=== PATIENT | male | born 2000 | race African-American/Black ===

== ENCOUNTER 2020-10-03 03:56 | Emergency (ER) | payer OTHER ==
[2020-10-03] MEDS ORDERED: ONDANSETRON 4 MG/2 ML VIAL IM STA (04:31)
[2020-10-03] MEDS ORDERED: ONDANSETRON 4 MG/2 ML VIAL ONE (04:34)
--- NOTE | 2020-10-03 04:40 | ED Physician Documentation ---
PD HPI ABD PAIN - Stated complaint Stated Complaint: CHEST PX, N/V - Chief complaint Chief Complaint: Cardiac - History obtained from History obtained from: Patient - Additional information Additional information: Patient comes emergency department chief complaint of nausea and vomiting that started about an hour after he ate barbecue chicken wings this evening. He states he had been feeling fine all day and had not had any other abdominal symptoms. He states after eating the chicken wings, he laid down to go to sleep, but awoke with discomfort in his upper abdomen. This progressed to a distinct feeling of nausea after which he vomited. Patient vomited several times after which he noticed a sharp pain that sometimes felt stabbing in his right breast area. Patient denies shortness of breath or cough. No fevers. He had not been having any chest pain or difficulty breathing prior to this. Patient states that he is healthy and has no history of any medical problems. No family history of gallbladder disease. No sick contacts that he knows of. Patient states he is the only one who ate the food that he ate. Patient denies any history of any pattern of abdominal pain or nausea after eating, particularly after fatty meals. The patient states that he is doing a little dry heaving since the initial vomiting, and that he still feels nauseated at this time. Review of Systems Ten Systems: 10 systems reviewed and negative Constitutional: reports: Reviewed and negative Eyes: reports: Reviewed and negative Ears: reports: Reviewed and negative Nose: reports: Reviewed and negative Throat: reports: Reviewed and negative Cardiac: reports: Chest pain / pressure Respiratory: reports: Reviewed and negative. denies: Dyspnea, Cough GI: reports: Nausea, Vomiting, Reviewed and negative. denies: Abdominal Pain : reports: Reviewed and negative Skin: reports: Reviewed and negative Musculoskeletal: reports: Reviewed and negative Neurologic: reports: Reviewed and negative Psychiatric: reports: Reviewed and negative Endocrine: reports: Reviewed and negative Immunocompromised: reports: Reviewed and negative PD PAST MEDICAL HISTORY - Past Medical History Past Medical History: No - Past Surgical History Past Surgical History: No - Present Medications Home Medications: Ambulatory Orders Medication Instructions Recorded Confirmed Medicine For Acne Topical` 10/03/20 Ondansetron Odt [Zofran] 4 mg TL Q6H PRN #10 tablet 10/03/20 - Allergies Allergies/Adverse Reactions: Allergies Allergy/AdvReac Type Severity Reaction Status Date / Time ibuprofen Allergy Hives Verified 10/03/20 04:04 - Social History Does the pt smoke?: No Smoking Status: Never smoker Does the pt drink ETOH?: Yes Does the pt have substance abuse?: No - Immunizations Immunizations are current?: Yes - POLST Patient has POLST: No PD ED PE NORMAL - Vitals Vital signs reviewed: Yes - General General: Alert and oriented X 3, No acute distress, Well developed/nourished - HEENT HEENT: Atraumatic, PERRL, EOMI, Moist mucous membranes - Neck Neck: Supple, no meningeal sign - Cardiac Cardiac: RRR, No murmur, Strong equal pulses - Respiratory Respiratory: No respiratory distress, Clear bilaterally - Abdomen Abdomen: Soft, Non tender, Non distended - Back Back: No CVA TTP - Derm Derm: Normal color, Warm and dry, No rash - Extremities Extremities: No deformity, No edema, No calf tenderness / cord - Neuro Neuro: Alert and oriented X 3, ski patroller 2-12 intact, Normal speech - Psych Psych: Normal mood, Normal affect PD ED PE EXPANDED - Free text exam Free text exam: Minimal chest wall tenderness. Results - Vitals Vitals: Vital Signs - 24 hr 10/03/20 04:00 Temperature 36.6 C Heart Rate 70 Respiratory 16 Rate Blood Pressure 143/70 H O2 Saturation 98 Oxygen O2 Source Room air - Rads (name of study) chest XR Radiology: Final report received, EMP read indepedently, See rad report (neg) PD MEDICAL DECISION MAKING - ED course Complexity details: reviewed results, re-evaluated patient, considered differential, d/w patient ED course: Patient was treated with 4 mg of Zofran IM and was worked up with an x-ray of the chest, Which was negative. I felt the patient most likely had a strain of the chest wall, and I feel the likelihood of either cardiac or biliary source of the patient's symptoms was unlikely, given the entire picture of history and physical exam, as well as risk factors. I discussed with the patient that I would expect his nausea and vomiting and be self-limited, as it is most likely either related to the food he ate or to a viral illness. We have discussed symptomatic management at home. I have given the patient a prescription for Zofran and instructions regarding clear liquid diet and advancement of diet. We have discussed the usual indications for return. Departure - Departure Disposition: 01 Home, Self Care Clinical Impression: Chest wall pain Vomiting Qualifiers: Vomiting type: bilious vomiting Nausea presence: with nausea Qualified Code(s): R11.14 - Bilious vomiting Condition: Stable Instructions: ED Nausea Vomiting, Diet Clear Liquid Dc, ED Strain Chest Wall Prescriptions: Ondansetron Odt [Zofran] 4 mg TL Q6H PRN #10 tablet PRN Reason: Nausea / Vomiting Comments: Your chest x-ray looks good. There is no evidence of any problem with your lungs or your heart. Most likely, the pain you are having in your chest is due to a strain of the structures of your chest wall, secondary to vomiting. This is a common scenario, and the discomfort should pass on its own. Please Take the nausea medication as needed, and stick with a clear liquid diet for the day. You may take the day off work to try to get some rest and feel better. Do not try to eat any solid food until you can easily tolerate liquids. When she can do this, you may try simple starches like saltine crackers, Ramen noodles, or white rice. If you are able to eat these without vomiting, then you may advance your diet as tolerated. Forms: Activity restrictions
[2020-10-03 05:00] VITALS: BP 150/89
--- NOTE | 2020-10-03 09:11 | XRAY Report ---
PROCEDURE: Chest 1 View X-Ray INDICATIONS: chest pain TECHNIQUE: One view of the chest was acquired. COMPARISON: None FINDINGS: Surgical changes and devices: None. Lungs and pleura: No pleural effusions or pneumothorax. Lungs are clear. Mediastinum: Mediastinal contours appear normal. Heart size is normal. Bones and chest wall: No suspicious bony lesions. Overlying soft tissues appear unremarkable. IMPRESSION: No acute pulmonary process. The above findings are concordant with preliminary report. Reviewed by: Eula Melgar MD on 10/03/2020 9:09 AM PDT Approved by: Eula Melgar MD on 10/03/2020 9:09 AM PDT Station ID: [id number]
== END 2020-10-03 05:00 | disposition home or self-care (01) ==
LOC: ED 03:56
DX: R11.14 Bilious vomiting (principal)
CPT/HCPCS: 96372; 99283; 99284

== ENCOUNTER 2020-10-23 20:20 | Emergency (ER) | payer OTHER ==
[2020-10-23 20:26] VITALS: BP 144/89
[2020-10-23 20:54] LABS: RAPID STREP SCREEN Negative (Negative)
[2020-10-23] MEDS ORDERED: HYDROcod/ACET 5/325 Prepack 4 PO STA (21:08)
[2020-10-23] MEDS ORDERED: predniSONE 20 MG TABLET PO STA (21:08)
--- NOTE | 2020-10-23 21:09 | ED Physician Documentation ---
PD HPI URI - Stated complaint Stated Complaint: SORE THROAT - Chief complaint Chief Complaint: Heent - History obtained from History obtained from: Patient - Additional information Additional information: 2 days of increasing sore throat. Not associated with fevers or chills. No cough. He was seen at [facility] 2 days ago. Had his throat swabbed. Does not know the results but was not contacted for antibiotics. Review of Systems Constitutional: denies: Fever, Chills, Myalgias Nose: denies: Rhinorrhea / runny nose Throat: denies: Sore throat Cardiac: denies: Chest pain / pressure, Palpitations Respiratory: denies: Dyspnea, Cough PD PAST MEDICAL HISTORY - Past Medical History Past Medical History: Yes Other Past Medical History: Acne - Past Surgical History Past Surgical History: No - Present Medications Home Medications: Ambulatory Orders Medication Instructions Recorded Confirmed Medicine For Acne Topical` .ROUTE DAILY 10/03/20 HYDROcod/ACETAM 5/325 [[place] 5/325] 1 - 2 tab PO Q6H PRN #10 tablet 10/23/20 predniSONE [Deltasone] 60 mg PO DAILY 5 Days #15 tablet 10/23/20 - Allergies Allergies/Adverse Reactions: Allergies Allergy/AdvReac Type Severity Reaction Status Date / Time ibuprofen Allergy Hives Verified 10/23/20 20:26 - Social History Does the pt smoke?: No Smoking Status: Never smoker Does the pt drink ETOH?: Yes Does the pt have substance abuse?: No - Immunizations Immunizations are current?: Yes - POLST Patient has POLST: No PD ED PE NORMAL - Vitals Vital signs reviewed: Yes - General General: Alert and oriented X 3, No acute distress - HEENT HEENT: PERRL, EOMI, Other (Mildly enlarged tonsils with just a touch of exudate. No asymmetry. No cervical adenopathy.) - Neck Neck: Supple, no meningeal sign, No bony TTP - Cardiac Cardiac: RRR, No murmur - Respiratory Respiratory: No respiratory distress, Clear bilaterally - Abdomen Abdomen: Non tender - Derm Derm: No rash - Neuro Neuro: Alert and oriented X 3, Normal speech Results - Vitals Vitals: Vital Signs - 24 hr 10/23/20 20:22 Temperature 36.6 C Heart Rate 65 Respiratory 16 Rate Blood Pressure 144/89 H O2 Saturation 100 Oxygen O2 Source Room air - Labs Labs: Laboratory Tests 10/23/20 20:37 Group A Strep Rapid Negative PD MEDICAL DECISION MAKING - ED course ED course: 1 out of 4 Centor criteria with negative rapid strep, probably negative rapid strep x2 given that he was at [facility] 2 days ago. Will treat symptomatically pending culture. Departure - Departure Disposition: 01 Home, Self Care Clinical Impression: Viral pharyngitis Condition: Good Record reviewed to determine appropriate education?: Yes Instructions: ED Pharyngitis Viral Report Pending Prescriptions: predniSONE [Deltasone] 60 mg PO DAILY 5 Days #15 tablet HYDROcod/ACETAM 5/325 [[place] 5/325] 1 - 2 tab PO Q6H PRN #10 tablet PRN Reason: Pain Comments: If a bacterial isolate is identified, we will call you. Return for new or worsening symptoms. Do not drink or drive while taking hydrocodone. I am prescribing a short course of narcotic pain medication for you. These are potentially dangerous and addictive medications that should be used carefully. These medications may constipate you. Take an [id number] stool softener (docusate) twice daily with plenty of water while taking these medications. If you go 24 hours without a bowel movement, take [id number] miralax, per package instructions. Do not drink or drive while taking these medications. If you received narcotic or sedating medications while in the emergency depa rtment, do not drive for 24 hours. Store this medication in a safe, secure place and out of reach of children. It is a violation of federal law to give or sell this medication to another person or to use in a manner other than prescribed. The ED will not refill narcotic prescriptions, including prescriptions lost or stolen. To dispose of unwanted medications: 1. [facility] at [address] in [place] has a medication drop box. They accept prescription medications (in pill form) Saturday through Saturday 9:00 a.m. to 5:00 p.m. 2. The [facility] accepts prescription medications (in pill form only) for disposal year round. Call for more information. 3. Contact the [facility] for the next [facility] sponsored prescription drug collection event. , [phone], or [phone]; Note that many narcotic pain relievers also contain Tylenol/acetaminophen. Please ensure that your total dose of acetaminophen from all sources does not exceed 3 g (3000 mg) per day. Forms: Activity restrictions
== END 2020-10-23 21:26 | disposition home or self-care (01) ==
LOC: ED 20:20
DX: J02.8 Acute pharyngitis due to other specified organisms (principal); B97.89 Other viral agents as the cause of diseases classified elsewhere
CPT/HCPCS: 87070; 87077; 87430; 99283; J7512

== ENCOUNTER 2020-10-29 08:24 | Emergency (ER) | payer OTHER ==
--- NOTE | 2020-10-29 08:38 | ED Physician Documentation ---
PD HPI NVD - Stated complaint Stated Complaint: VOMITING - Chief complaint Chief Complaint: General - History obtained from History obtained from: Patient - History of Present Illness Timing - onset: Today Timing - duration: Hours Timing - details: Gradual onset, Still present Associated symptoms: Abdominal pain, Other (sore throat and fever are some better diarrhea has started as well) Contributing factors: Other (has strep and has not yet started treatment.) Improved by: Vomiting Similar symptoms before: Has not had sx before Recently seen: Clinic, Emergency Dept - Additonal information Additional information: 20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 The patient has been prescribed antibiotics but has not filled them as yet. He is working night shifts at the [employer] and this morning early he began to develop nausea vomiting and diarrhea. He was asked by his command to come into the emergency department for evaluation. The patient feels that his symptoms of sore throat are somewhat improved but now he has developed vomiting. He feels fatigued. Review of Systems Constitutional: reports: Fever, Chills, Myalgias Eyes: denies: Decreased vision Ears: denies: Ear pain Nose: reports: Congestion Throat: reports: Sore throat Cardiac: denies: Chest pain / pressure, Palpitations Respiratory: denies: Dyspnea, Cough GI: reports: Abdominal Pain, Nausea, Vomiting, Diarrhea : denies: Dysuria, Frequency Skin: denies: Rash Musculoskeletal: denies: Neck pain, Back pain, Extremity pain Neurologic: denies: Generalized weakness, Focal weakness, Numbness PD PAST MEDICAL HISTORY - Past Surgical History Past Surgical History: No - Present Medications Home Medications: Ambulatory Orders Medication Instructions Recorded Confirmed Medicine For Acne Topical` .ROUTE DAILY 10/03/20 HYDROcod/ACETAM 5/325 [[place] 5/325] 1 - 2 tab PO Q6H PRN #10 tablet 10/23/20 predniSONE [Deltasone] 60 mg PO DAILY 5 Days #15 tablet 10/23/20 Amoxicillin 500 mg PO TID #30 cap 10/29/20 - Allergies Allergies/Adverse Reactions: Allergies Allergy/AdvReac Type Severity Reaction Status Date / Time ibuprofen Allergy Hives Verified 10/29/20 08:36 - Social History Does the pt smoke?: No Smoking Status: Never smoker Does the pt drink ETOH?: Yes Does the pt have substance abuse?: No - Immunizations Immunizations are current?: Yes - POLST Patient has POLST: No PD ED PE NORMAL - Vitals Vital signs reviewed: Yes (Hypertensive mild) - General General: Alert and oriented X 3, No acute distress, Well developed/nourished - HEENT HEENT: Atraumatic, PERRL, EOMI, Other (The right TM is flush the left is clear the pharynx is with generalized erythema mild swelling to the uvula.) - Neck Neck: Supple, no meningeal sign, No bony TTP - Cardiac Cardiac: RRR, No murmur - Respiratory Respiratory: No respiratory distress, Clear bilaterally - Abdomen Abdomen: Normal bowel sounds, Soft, Non tender, Non distended, No organomegaly - Back Back: No CVA TTP, No spinal TTP - Derm Derm: Normal color, Warm and dry, No rash - Extremities Extremities: No deformity, No edema - Neuro Neuro: Alert and oriented X 3, marine pilot 2-12 intact, No motor deficit, No sensory deficit, Normal speech Eye Opening: Spontaneous Motor: Obeys Commands Verbal: Oriented GCS Score: 15 - Psych Psych: Normal mood, Normal affect Results - Vitals Vitals: Vital Signs - 24 hr 10/29/20 10/29/20 08:31 10:36 Temperature 36.8 C 37.1 C Heart Rate 76 66 Respiratory 15 16 Rate Blood Pressure 134/75 H 120/70 O2 Saturation 99 100 Oxygen O2 Source Room air - Labs Labs: Laboratory Tests 10/29/20 10/29/20 09:00 09:00 WBC 11.8 H RBC 5.62 Hgb 16.1 Hct 49.1 MCV 87.4 MCH 28.6 MCHC 32.8 RDW 12.7 Plt Count 232 MPV 10.6 Neut # (Auto) 10.5 H Lymph # (Auto) 0.8 L [place] # (Auto) 0.4 Eos # (Auto) 0.0 Baso # (Auto) 0.0 Absolute Nucleated RBC 0.00 Nucleated RBC % 0.0 Sodium 142 Potassium 4.5 Chloride 101 Carbon Dioxide 29 Anion Gap 12.0 BUN 9 Creatinine 0.9 Estimated GFR (MDRD) 129 Glucose 111 H Calcium 9.4 Total Bilirubin 0.6 AST 29 ALT 28 Alkaline Phosphatase 56 Total Protein 8.4 H Albumin 4.7 Globulin 3.7 Albumin/Globulin Ratio 1.3 Lipase 17 L Procedures - IVC sono (time) 0850 Bedside IVC sono: IVC measures (cm) (0.65), IVC collapsed c insp (cm) (complete), Dehydration (est 3 liter deficit.) PD MEDICAL DECISION MAKING - ED course Complexity details: reviewed old records, reviewed results, re-evaluated patient, considered differential, d/w patient ED course: 20-year-old male with strep pharyngitis untreated has now developed nausea vomiting and diarrhea and on evaluation he has a normal heart rate but appears significantly dehydrated on interrogation the inferior vena cava. He does not feel particularly well. He is administered intravenous saline dexamethasone Zofran and Rocephin for treatment of strep and dehydration. The patient indicated to me that a prescription for his antibiotic has been called in and after he got to [facility] he found that it had not been called in and he was E scribed amoxicillin 500 3 times daily #30. Departure - Departure Disposition: Home, Self Care Clinical Impression: Streptococcal pharyngitis, Dehydration Condition: Stable Instructions: ED Dehydration, ED Strep Pharyngitis Conf Follow-Up: [facility] [Provider Group] Prescriptions: Amoxicillin 500 mg PO TID #30 cap Comments: Your pharyngeal culture from your last visit has grown beta-hemolytic strep. This requires a 10-day course of antibiotic. You have been given a dose of antibiotic by vein today and you have been hydrated. You are still dehydrated and will require further fluids. Drink an additional quart of fluid or what you would normally drink during the day. Strep is a contagious infection and the recommendation is to stay out of work for 3 days until you are on your third day of antibiotic. Forms: Activity restrictions Discharge Date/Time: 10/29/20 10:36
--- OUTSIDE RECORDS SUMMARY | 2020-10-29 08:48 | EXTERNAL MEDICAL SUMMARY RPT | Continuity of Care Document ---
:2000 Demographics Phone Unavailable Preferred Language Unknown Marital Status Unknown Orthodoxy Affiliation Unknown Race Unknown Ethnic Group Unknown Author Organization [facility] Address [address] [place] [address] Phone Allergies Encounters Medications Problems Results
[2020-10-29] MEDS ORDERED: DEXAMETHASONE 10 MG/ML VIAL IVP STA (08:50)
[2020-10-29] MEDS ORDERED: SODIUM CHLORIDE 0.9% 1,000 ML IV STA (08:50)
[2020-10-29] MEDS ORDERED: cefTRIAXone 1 GM in SODIUM CHLORIDE 0.9% MINIBAG 100 ML IV STA (08:50)
[2020-10-29] MEDS ORDERED: ONDANSETRON 4 MG/2 ML VIAL IVP STA (08:51)
[2020-10-29 09:09] LABS: BASOPHILS % (AUTO) 0.3 %; EOSINOPHILS % (AUTO) 0.1 %; HCT - HEMATOCRIT 49.1 % (42.0-52.0); HGB - HEMOGLOBIN 16.1 g/dL (14.0-18.0); LYMPHOCYTES # (AUTO) 0.8 10^3/uL (1.5-3.5); LYMPHOCYTES % (AUTO) 6.6 %; MEAN CORPUSCULAR HEMOGLOBIN 28.6 pg (27.0-31.0); MEAN CORPUSCULAR HGB CONC 32.8 g/dL (32.0-36.0); MEAN CORPUSCULAR VOLUME 87.4 fL (80.0-94.0); MEAN PLATELET VOLUME 10.6 fL (7.4-11.4); MONOCYTES # (AUTO) 0.4 10^3/uL (0.0-1.0); MONOCYTES % (AUTO) 3.2 %; NEUTROPHILS # (AUTO) 10.5 10^3/uL (1.5-6.6); NEUTROPHILS % (AUTO) 89.3 %; PLT - PLATELET COUNT 232 10^3/uL (130-450); RED BLOOD COUNT 5.62 10^6/uL (4.70-6.10); RED CELL DISTRIBUTION WIDTH 12.7 % (12.0-15.0); WHITE BLOOD COUNT 11.8 x10^3/uL (4.8-10.8)
[2020-10-29 09:21] LABS: ALBUMIN 4.7 g/dL (3.2-5.5); ALBUMIN/GLOBULIN RATIO 1.3 (1.0-2.2); BILIRUBIN,TOTAL 0.6 mg/dL (0.2-1.0); CALCIUM 9.4 mg/dL (8.5-10.3); CREATININE 0.9 mg/dL (0.6-1.2); POTASSIUM 4.5 mmol/L (3.5-5.0); TOTAL PROTEIN 8.4 g/dL (6.7-8.2)
[2020-10-29 10:36] VITALS: BP 120/70
== END 2020-10-29 10:36 | disposition home or self-care (01) ==
LOC: ED 08:24
DX: J02.0 Streptococcal pharyngitis (principal); E86.0 Dehydration; R11.2 Nausea with vomiting, unspecified; R19.7 Diarrhea, unspecified
CPT/HCPCS: 36415; 80053; 83690; 85025; 96365; 96375; 99283

== ENCOUNTER 2020-12-11 15:35 | Emergency (ER) | payer OTHER ==
[2020-12-11 16:36] LABS: BASOPHILS # (AUTO) 0.1 10^3/uL (0.0-0.1); BASOPHILS % (AUTO) 1.1 %; EOSINOPHILS # (AUTO) 0.3 10^3/uL (0.0-0.7); EOSINOPHILS % (AUTO) 4.5 %; HCT - HEMATOCRIT 49.3 % (42.0-52.0); HGB - HEMOGLOBIN 16.1 g/dL (14.0-18.0); LYMPHOCYTES # (AUTO) 1.7 10^3/uL (1.5-3.5); LYMPHOCYTES % (AUTO) 25.6 %; MEAN CORPUSCULAR HEMOGLOBIN 28.7 pg (27.0-31.0); MEAN CORPUSCULAR HGB CONC 32.7 g/dL (32.0-36.0); MEAN CORPUSCULAR VOLUME 87.9 fL (80.0-94.0); MEAN PLATELET VOLUME 10.6 fL (7.4-11.4); MONOCYTES # (AUTO) 0.5 10^3/uL (0.0-1.0); MONOCYTES % (AUTO) 7.2 %; NEUTROPHILS % (AUTO) 61.3 %; PLT - PLATELET COUNT 225 10^3/uL (130-450); RED BLOOD COUNT 5.61 10^6/uL (4.70-6.10); RED CELL DISTRIBUTION WIDTH 12.2 % (12.0-15.0); WHITE BLOOD COUNT 6.5 x10^3/uL (4.8-10.8)
[2020-12-11 16:50] LABS: ALBUMIN 4.7 g/dL (3.2-5.5); ALBUMIN/GLOBULIN RATIO 1.5 (1.0-2.2); BILIRUBIN,TOTAL 0.6 mg/dL (0.2-1.0); CALCIUM 9.6 mg/dL (8.5-10.3); CREATININE 0.9 mg/dL (0.6-1.2); POTASSIUM 4.1 mmol/L (3.5-5.0); TOTAL PROTEIN 7.9 g/dL (6.7-8.2)
[2020-12-11] MEDS ORDERED: PANTOPRAZOLE 40 MG VIAL IVP STA (17:14)
[2020-12-11] MEDS ORDERED: MORPHINE 2 MG/ML CARPUJECT IVP STA (17:14)
[2020-12-11] MEDS ORDERED: IOPAMIDOL-300 100 ML VIAL ONE (17:20)
--- NOTE | 2020-12-11 17:29 | ED Physician Documentation ---
PD HPI ABD PAIN - Stated complaint Stated Complaint: ABD PX - Chief complaint Chief Complaint: Abd Pain - History obtained from History obtained from: Patient - History of Present Illness Timing - onset: How many weeks ago (1) Timing - duration: Weeks (1) Timing - details: Gradual onset Quality: Sharp, Pain Location: All over / everywhere Radiation: No: Chest, , Lower back, Left flank, Left shoulder, Right flank, Right shoulder, Upper back Improved by: Laying still Worsened by: Eating, Moving Associated symptoms: Nausea, Melena, Hematochezia (Occasionally has bright red blood in his stool, occasionally dark). No: Fever, Vomiting, Hematemesis, Diarrhea, Constipation, Dysuria, Hematuria, Chest pain, Dizzy Recently seen: Emergency Dept ([facility] for same) - Additional information Additional information: Patient is a 20-year-old male who was seen at [facility] 4 days ago for abdominal pain, rectal bleeding and lower GI bleeding. Has an appointment with GI in 4 days at [facility]. Today he was coughing and noted a small amount of blood in the sputum. He has had continued abdominal pain as well. Pain is worse with eating and drinking. He does not know if there is any history of gastrointestinal disease in his family including IBS or IBD. He states he drinks alcohol about 1 time per week. Denies any marijuana use. Denies any smoking. States he is allergic to ibuprofen and it causes hives. No history of ulcers. Review of Systems Ten Systems: 10 systems reviewed and negative Constitutional: denies: Fever, Chills Respiratory: denies: Cough GI: denies: Vomiting, Diarrhea Skin: denies: Rash Musculoskeletal: denies: Neck pain, Back pain Neurologic: denies: Focal weakness, Numbness, Headache PD PAST MEDICAL HISTORY - Past Medical History Past Medical History: No - Past Surgical History Past Surgical History: No - Present Medications Home Medications: Ambulatory Orders Medication Instructions Recorded Confirmed Medicine For Acne Topical` .ROUTE DAILY 10/03/20 HYDROcod/ACETAM 5/325 [Crandall 5/325] 1 - 2 tab PO Q6H PRN #10 tablet 10/23/20 predniSONE [Deltasone] 60 mg PO DAILY 5 Days #15 tablet 10/23/20 Amoxicillin 500 mg PO TID #30 cap 10/29/20 Esomeprazole Magnesium [Nexium] 40 mg PO DAILY #30 cap 12/11/20 Famotidine [Pepcid] 20 mg PO BID #60 tablet 12/11/20 HYDROcod/ACETAM 5/325 [Crandall 5/325] 1 - 2 ea PO Q6H PRN #10 tablet 12/11/20 Sucralfate [Carafate] 1 gm PO ACHS #60 tablet 12/11/20 polyethylene glycoL 3350 [Miralax] 17 gm PO DAILY PRN #1 bottle 12/11/20 - Allergies Allergies/Adverse Reactions: Allergies Allergy/AdvReac Type Severity Reaction Status Date / Time ibuprofen Allergy Hives Verified 12/11/20 15:50 - Living Situation Living Situation: reports: With family Living Arrangement: reports: At home - Social History Does the pt smoke?: No Smoking Status: Never smoker Does the pt drink ETOH?: Yes Does the pt have substance abuse?: No - Immunizations Immunizations are current?: Yes - POLST Patient has POLST: No PD ED PE NORMAL - Vitals Vital signs reviewed: Yes - General General: Alert and oriented X 3, No acute distress, Well developed/nourished - HEENT HEENT: PERRL, Moist mucous membranes - Neck Neck: Supple, no meningeal sign - Cardiac Cardiac: RRR - Respiratory Respiratory: No respiratory distress, Clear bilaterally - Abdomen Abdomen: Soft, Non distended, Other (Mild diffuse tenderness to palpation. No peritoneal signs) - Rectal Rectal: Pt declined - Back Back: No CVA TTP, No spinal TTP - Derm Derm: Warm and dry - Extremities Extremities: No edema - Neuro Neuro: Alert and oriented X 3 - Psych Psych: Normal mood, Normal affect Results - Vitals Vitals: Vital Signs - 24 hr 12/11/20 12/11/20 15:50 17:54 Temperature 36.5 C Heart Rate 65 66 Respiratory 16 17 Rate Blood Pressure 122/76 133/81 H O2 Saturation 99 97 Oxygen O2 Source Room air - Labs Labs: Laboratory Tests 12/11/20 12/11/20 16:32 16:32 WBC 6.5 RBC 5.61 Hgb 16.1 Hct 49.3 MCV 87.9 MCH 28.7 MCHC 32.7 RDW 12.2 Plt Count 225 MPV 10.6 Neut # (Auto) 4.0 Lymph # (Auto) 1.7 [place] # (Auto) 0.5 Eos # (Auto) 0.3 Baso # (Auto) 0.1 Absolute Nucleated RBC 0.00 Nucleated RBC % 0.0 Sodium 142 Potassium 4.1 Chloride 105 Carbon Dioxide 28 Anion Gap 9.0 BUN 11 Creatinine 0.9 Estimated GFR (MDRD) 129 Glucose 96 Calcium 9.6 Total Bilirubin 0.6 AST 28 ALT 26 Alkaline Phosphatase 45 Total Protein 7.9 Albumin 4.7 Globulin 3.2 Albumin/Globulin Ratio 1.5 Lipase 21 L - Rads (name of study) CT abdomen pelvis Radiology: See rad report PD MEDICAL DECISION MAKING - ED course Complexity details: reviewed results, re-evaluated patient, considered differential, d/w patient, d/w family ED course: Patient with abdominal pain, feels better after morphine and GI cocktail. Possible gastritis versus ulcer. Also appears to have constipation. Will treat for all of the above. He is following up with GI on . We will keep him off work until then. He will follow a bland diet. Patient is well- appearing, nontoxic. Afebrile. CT does not show any acute results other than constipation. Patient and family counseled regarding signs and symptoms for which I believe and urgent re-evaluation would be necessary. Patient with good understanding of and agreement to plan and is comfortable going home at this time This document was made in part using voice recognition software. While efforts are made to proofread this document, sound alike and grammatical errors may occur. Departure - Departure Disposition: Home, Self Care Clinical Impression: Hematochezia Abdominal pain Qualifiers: Abdominal location: unspecified location Qualified Code(s): R10.9 - Unspecified abdominal pain Constipation Qualifiers: Constipation type: unspecified constipation type Qualified Code(s): K59.00 - Constipation, unspecified Condition: Good Instructions: ED Abdominal Pain Unkn Cause Follow-Up: your,doctor on as scheduled. [Other] Prescriptions: Sucralfate [Carafate] 1 gm PO ACHS #60 tablet polyethylene glycoL 3350 [Miralax] 17 gm PO DAILY PRN #1 bottle PRN Reason: Constipation Esomeprazole Magnesium [Nexium] 40 mg PO DAILY #30 cap HYDROcod/ACETAM 5/325 [Crandall 5/325] 1 - 2 ea PO Q6H PRN #10 tablet PRN Reason: Pain Famotidine [Pepcid] 20 mg PO BID #60 tablet Comments: The cause of your symptoms is unclear. This could be due to gastritis which is an inflammation of the stomach lining, ulcers, inflammatory bowel disease or other conditions. It is important you follow-up with GI on as scheduled. Eat a very bland diet. Avoid any fried food, spicy food. Avoid alcohol and caffeine as much as possible. You do have constipation on your CT scan as well. Make sure you are drinking plenty of water. We will place you on MiraLAX for this as well. I am prescribing a short course of narcotic pain medication for you. These are potentially dangerous and addictive medications that should be used carefully. These medications may constipate you. Take an bkpj-hwu-ritogmf stool softener (docusate) twice daily with plenty of water while taking these medications. If you go 24 hours without a bowel movement, take jxpo-ypy-ekfulpi miralax, per package instructions. Do not drink or drive while taking these medications. If you received narcotic or sedating medications while in the emergency department, do not drive for 24 hours. Store this medication in a safe, secure place and out of reach of children. It is a violation of federal law to give or sell this medication to another person or to use in a manner other than prescribed. The ED will not refill narcotic prescriptions, including prescriptions lost or stolen. To dispose of unwanted medications: 1. [facility] at [address] in [place] has a medication drop box. They accept prescription medications (in pill form) Saturday through Saturday 9:00 a.m. to 5:00 p.m. 2. The [facility] Police Department accepts prescription medications (in pill form only) for disposal year round. Call for more information. 3. Contact the [facility] for the next [facility] sponsored prescription drug collection event. , [phone], or [phone];
[2020-12-11] MEDS ORDERED: IOPAMIDOL-300 100 ML VIAL IVP ONE (17:34)
[2020-12-11] MEDS ORDERED: SUCRALFATE 1 GM/10 ML UDC PO STA (17:40)
[2020-12-11] MEDS ORDERED: FAMOTIDINE 20 MG TABLET PO STA (17:40)
[2020-12-11] MEDS ORDERED: MAG HYDROX/AL HYDROX/SIMETH 30 ML UDC PO STA (17:40)
--- NOTE | 2020-12-11 17:50 | CT Report ---
PROCEDURE: Abdomen/Pelvis W INDICATIONS: diffuse abd pain, rectal bleeding CONTRAST: IV CONTRAST: Isovue 300 ml: 100 PO CONTRAST: *NO PO CONTRAST TECHNIQUE: After the administration of IV contrast, 5 mm thick sections acquired from the diaphragms to the symp hysis. 5 mm thick coronal and sagittal reformats were acquired. For radiation dose reduction, the f ollowing was used: automated exposure control, adjustment of mA and/or kV according to patient size. COMPARISON: None. FINDINGS: Image quality: Excellent. ABDOMEN: Lung bases: Lung bases are clear. Heart size is normal. Solid organs: Liver and spleen are normal in size and enhancement. Gallbladder wall does not appear thickened. Biliary system is non dilated. Pancreas enhances normally. No adrenal nodules. Kidn eys demonstrate normal size and enhancement, without hydronephrosis. Peritoneum and bowel: Bowel loops demonstrate normal wall thickness and caliber. No free fluid or a ir. There is a moderate amount of stool seen within the colon. Nodes and vessels: No retroperitoneal or mesenteric adenopathy by size criteria. Aorta and inferior vena cava are normal in size. Miscellaneous: No ventral hernias. PELVIS: Genitourinary: Bladder wall thickness is normal. Miscellaneous: No inguinal hernias or adenopathy. Bones: No suspicious bony lesions. No vertebral body compression fractures. IMPRESSION: A cause of rectal bleeding is not seen. There is a moderate amount of stool seen within the colon. Please correlate with clinical constipatio n. Reviewed by: Quincy Chow MD on 12/11/2020 4:49 PM AKDT Approved by: Quincy Chow MD on 12/11/2020 4:49 PM AKDT Station ID: [id number]
[2020-12-11 18:00] VITALS: BP 133/81
--- NOTE | 2020-12-12 15:05 | ED Physician Documentation ---
ED Addendum - Addendum Addendum: 12/12/20 15:04 Call from pharmacy, they will not pay for Nexium, authorized substitution to omeprazole 20 mg a day #30
== END 2020-12-11 18:31 | disposition home or self-care (01) ==
LOC: ED 15:35
DX: K92.1 Melena (principal); R10.84 Generalized abdominal pain; K59.00 Constipation, unspecified
CPT/HCPCS: 36415; 74177; 80053; 83690; 85025; 96374; 96375; 99284; A9270; Q9967

== ENCOUNTER 2020-12-18 15:08 | Emergency (ER) | payer OTHER ==
[2020-12-18] MEDS ORDERED: ONDANSETRON 4 MG/2 ML VIAL IVP STA (15:51)
[2020-12-18] MEDS ORDERED: SODIUM CHLORIDE 0.9% 1,000 ML IV STA (15:51)
--- NOTE | 2020-12-18 15:53 | ED Physician Documentation ---
History of Present Illness - Stated complaint Stated Complaint: R SIDE PX/BLOOD IN STOOL - Chief complaint Chief Complaint: Abd Pain - History obtained from History obtained from: Patient - History of Present Illness Timing: Today Pain level max: 0 Pain level now: 0 - Additonal information Additional information: 20 year old male with abd pain, diarrhea and blood in stool. This has been ongoing for several weeks. [facility] and has a colonoscopy in 2 days. Has had multiple lab draws and CT scans for same. Nothing makes it better or wors Review of Systems Constitutional: denies: Fever, Chills Nose: denies: Rhinorrhea / runny nose, Congestion GI: reports: Diarrhea. denies: Vomiting Skin: denies: Rash Musculoskeletal: denies: Neck pain, Back pain PD PAST MEDICAL HISTORY - Past Medical History Past Medical History: No - Past Surgical History Past Surgical History: No - Present Medications Home Medications: Ambulatory Orders Medication Instructions Recorded Confirmed predniSONE [Deltasone] 60 mg PO DAILY 5 Days #15 tablet 10/23/20 12/18/20 Esomeprazole Magnesium [Nexium] 40 mg PO DAILY #30 cap 12/11/20 12/18/20 Famotidine [Pepcid] 20 mg PO BID #60 tablet 12/11/20 12/18/20 Sucralfate [Carafate] 1 gm PO ACHS #60 tablet 12/11/20 12/18/20 polyethylene glycoL 3350 [Miralax] 17 gm PO DAILY PRN #1 bottle 12/11/20 12/18/20 Diphenoxylate/Atropine [Lomotil] 1 tab PO QID PRN #20 tablet 12/18/20 Ondansetron Odt [Zofran] 4 mg TL Q6H PRN #10 tablet 12/18/20 - Allergies Allergies/Adverse Reactions: Allergies Allergy/AdvReac Type Severity Reaction Status Date / Time ibuprofen Allergy Hives Verified 12/11/20 15:50 Iodinated Contrast Media AdvReac Emesis Verified 12/18/20 15:19 - Social History Does the pt smoke?: No Smoking Status: Never smoker Does the pt drink ETOH?: Yes Does the pt have substance abuse?: No - Immunizations Immunizations are current?: Yes - POLST Patient has POLST: No PD ED PE NORMAL - Vitals Vital signs reviewed: Yes - General General: Alert and oriented X 3, No acute distress, Well developed/nourished - HEENT HEENT: PERRL, Moist mucous membranes - Neck Neck: Supple, no meningeal sign - Cardiac Cardiac: RRR, Strong equal pulses - Respiratory Respiratory: No respiratory distress, Clear bilaterally - Abdomen Abdomen: Normal bowel sounds, Soft, Non tender, Non distended - Derm Derm: Warm and dry - Extremities Extremities: No edema - Neuro Neuro: Alert and oriented X 3 - Psych Psych: Normal mood, Normal affect Results - Vitals Vitals: Oxygen O2 Source Room air - Labs Labs: Laboratory Tests 12/18/20 12/18/20 15:45 15:45 WBC 5.5 RBC 5.27 Hgb 15.2 Hct 45.5 MCV 86.3 MCH 28.8 MCHC 33.4 RDW 12.0 Plt Count 220 MPV 10.9 Neut # (Auto) 3.2 Lymph # (Auto) 1.4 [place] # (Auto) 0.5 Eos # (Auto) 0.3 Baso # (Auto) 0.0 Absolute Nucleated RBC 0.00 Nucleated RBC % 0.0 Sodium 137 Potassium 3.7 Chloride 101 Carbon Dioxide 28 Anion Gap 8.0 BUN 13 Creatinine 1.0 Estimated GFR (MDRD) 114 Glucose 84 Calcium 9.2 Total Bilirubin 0.8 AST 27 ALT 20 Alkaline Phosphatase 42 Total Protein 7.1 Albumin 4.2 Globulin 2.9 Albumin/Globulin Ratio 1.4 Lipase 23 PD MEDICAL DECISION MAKING - ED course Complexity details: reviewed results, re-evaluated patient, considered differential, d/w patient ED course: Unclear etiology of the patient's symptoms. He has a colonoscopy scheduled this week. We will place him on antidiarrheals. Feels better after IV fluids. We will have him follow-up closely with his GI for further care. Patient counseled regarding signs and symptoms for which I believe and urgent re-evaluation would be necessary. Patient with good understanding of and agreement to plan and is comfortable going home at this time This document was made in part using voice recognition software. While efforts are made to proofread this document, sound alike and grammatical errors may occur. Departure - Departure Disposition: 01 Home, Self Care Clinical Impression: Hematochezia Diarrhea Qualifiers: Diarrhea type: unspecified type Qualified Code(s): R19.7 - Diarrhea, unspecified Condition: Good Instructions: ED Abdominal Pain Unkn Cause Follow-Up: your,doctor in 3 days [Other] Prescriptions: Diphenoxylate/Atropine [Lomotil] 1 tab PO QID PRN #20 tablet PRN Reason: diarrhea Ondansetron Odt [Zofran] 4 mg TL Q6H PRN #10 tablet PRN Reason: Nausea / Vomiting Comments: Make sure to follow-up with GI for your colonoscopy today. Drink plenty of fluids. Return if you worsen. Forms: Activity restrictions Discharge Date/Time: 12/18/20 17:35
[2020-12-18] MEDS ORDERED: ONDANSETRON 4 MG/2 ML VIAL ONE (15:58)
[2020-12-18 16:16] LABS: RED BLOOD COUNT 5.27 10^6/uL (4.70-6.10); WHITE BLOOD COUNT 5.5 x10^3/uL (4.8-10.8)
[2020-12-18 16:17] LABS: BASOPHILS % (AUTO) 0.7 %; EOSINOPHILS % (AUTO) 5.5 %; HCT - HEMATOCRIT 45.5 % (42.0-52.0); HGB - HEMOGLOBIN 15.2 g/dL (14.0-18.0); LYMPHOCYTES % (AUTO) 25.3 %; MEAN CORPUSCULAR HEMOGLOBIN 28.8 pg (27.0-31.0); MEAN CORPUSCULAR HGB CONC 33.4 g/dL (32.0-36.0); MEAN CORPUSCULAR VOLUME 86.3 fL (80.0-94.0); MEAN PLATELET VOLUME 10.9 fL (7.4-11.4); MONOCYTES % (AUTO) 9.3 %; PLT - PLATELET COUNT 220 10^3/uL (130-450)
[2020-12-18 16:18] LABS: EOSINOPHILS # (AUTO) 0.3 10^3/uL (0.0-0.7); LYMPHOCYTES # (AUTO) 1.4 10^3/uL (1.5-3.5); MONOCYTES # (AUTO) 0.5 10^3/uL (0.0-1.0); NEUTROPHILS # (AUTO) 3.2 10^3/uL (1.5-6.6)
[2020-12-18 16:25] LABS: CALCIUM 9.2 mg/dL (8.5-10.3); POTASSIUM 3.7 mmol/L (3.5-5.0)
[2020-12-18 16:26] LABS: ALBUMIN 4.2 g/dL (3.2-5.5); ALBUMIN/GLOBULIN RATIO 1.4 (1.0-2.2); BILIRUBIN,TOTAL 0.8 mg/dL (0.2-1.0); TOTAL PROTEIN 7.1 g/dL (6.7-8.2)
[2020-12-18] MEDS ORDERED: DIPHENOX/ATROPINE 2.5/0.025 MG TABLET PO STA (16:31)
[2020-12-18] MEDS ORDERED: DIPHENOX/ATROPINE 2.5/0.025 MG TABLET PO ONE (16:46)
[2020-12-18 17:33] VITALS: BP 119/72
== END 2020-12-18 17:35 | disposition home or self-care (01) ==
LOC: ED 15:08
DX: K92.1 Melena (principal)
CPT/HCPCS: 36415; 80053; 83690; 85025; 96374; 99283; 99284; A9270

== ENCOUNTER 2021-01-26 15:12 | Emergency (ER) | payer OTHER ==
[2021-01-26] MEDS ORDERED: BUFFERED LIDOCAINE 10 ML SYRINGE SUBQ STA (15:38)
[2021-01-26] MEDS ORDERED: SULFAMETH/TRIMETH DS 800/160 MG TABLET PO STA (15:39)
[2021-01-26] MEDS ORDERED: HYDROmorphone 1 MG/ML CARPUJECT IM STA (15:39)
[2021-01-26] MEDS ORDERED: PROPOFOL 200 MG/20 ML VIAL IVP STA ×2 (15:53→17:17)
--- NOTE | 2021-01-26 16:22 | ED Physician Documentation ---
History of Present Illness - Stated complaint Stated Complaint: MALE - Chief complaint Chief Complaint: Wound - Additonal information Additional information: 20-year-old male presents emergency department for evaluation of pain on his lef t groin. 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 He has found it difficult to walk over the last 2 days and this a.m. when he was having intercourse the pain was intolerable. He then noted that he had some purulence draining from the groin. No history of similar. Denies a history of skin abscess. Denies dysuria urgency or frequency. No penile discharge. Review of Systems Constitutional: denies: Fever, Chills Nose: reports: Reviewed and negative Throat: reports: Reviewed and negative Cardiac: reports: Reviewed and negative Respiratory: reports: Reviewed and negative GI: reports: Reviewed and negative Skin: reports: Lesions (Left groin) PD PAST MEDICAL HISTORY - Past Medical History Cardiovascular: None Respiratory: None Neuro: None Endocrine/Autoimmune: None GI: Other : None HEENT: None Psych: None Musculoskeletal: None Derm: None - Past Surgical History Past Surgical History: No - Present Medications Home Medications: Ambulatory Orders Medication Instructions Recorded Confirmed HYDROcod/ACETAM 5/325 [Luxora 5/325] 1 tablet PO BID PRN #10 tablet 01/26/21 Sulfamethox/Trimeth 800/160 1 each PO BID #14 tablet 01/26/21 [Bactrim Ds 800/160] - Allergies Allergies/Adverse Reactions: Allergies Allergy/AdvReac Type Severity Reaction Status Date / Time ibuprofen Allergy Hives Verified 01/26/21 15:24 Iodinated Contrast Media AdvReac Emesis Verified 01/26/21 15:24 - Social History Does the pt smoke?: No Smoking Status: Never smoker Does the pt drink ETOH?: Yes Does the pt have substance abuse?: No - Immunizations Immunizations are current?: Yes - POLST Patient has POLST: No PD ED PE EXPANDED - General General: Alert, In Pain - Male Male : Other (Palpable and draining abscess on the left groin superior to the scrotum. Palpated scrotum and testes are nontender. There is some associated inguinal lymphadenopathy. 2+ femoral pulse. Abscess is localized with ultrasound) Results - Vitals Vitals: Vital Signs - 24 hr 01/26/21 01/26/21 15:23 16:58 Temperature 36.7 C Heart Rate 67 68 Respiratory 16 16 Rate Blood Pressure 131/73 H O2 Saturation 98 Oxygen O2 Source Room air Procedures - Abscess I&D (location) left groin Preparation: Confirmed with ultrasound, Betadine Incision: Incised with scalpel, Purulent drainage, Culture obtained, Other (tunneled catheter tubing placed) Other: Pt tolerated well PD MEDICAL DECISION MAKING - ED course Complexity details: reviewed results, re-evaluated patient, d/w patient ED course: 20-year-old male presents emergency department for evaluation of 2 days left groin pain in the setting of abscess development. This gentleman did require conscious sedation in order to drain the abscess. Please see my colleagues note regarding the conscious sedation procedure. We did place butterfly tubing in a through and through manner to allow the wound to continue to drain. This gentleman will be placed on Bactrim. Will recommend warm compresses or sitz baths as well. A limited amount of hydrocodone will be prescribed for pain. Gentleman is encouraged to have the tubing removed in 70 to 96 hours. On exam there does not appear to be any scrotal or testicular involvement. Emergent return precautions were discussed. I am prescribing a short course of short-acting opioid pain medication for this patient. I have reviewed the patients INTERNAL MEDICINE NURSE and no concerning findings were noted. I have discussed that the opioids are for short term therapy only, and will not be refilled from the ED. Departure - Departure Disposition: 01 Home, Self Care Clinical Impression: Abscess of left groin Condition: Stable Record reviewed to determine appropriate education?: Yes Follow-Up: KEYSHA DOMINGUEZ MD [Primary Care Provider] - Prescriptions: Sulfamethox/Trimeth 800/160 [Bactrim Ds 800/160] 1 each PO BID #14 tablet HYDROcod/ACETAM 5/325 [Luxora 5/325] 1 tablet PO BID PRN #10 tablet PRN Reason: Pain Comments: Dandre you had an abscess that was drained under conscious sedation in your left groin completed today here in the ER. Please fill the prescription for the Bactrim and begin taking twice daily as prescribed. I do recommend that you either take a warm sitz bath once a day or place a warm compress over the area for 10 minutes 3 times a day. You do have some tubing in your groin that was placed there to keep the wound open and allow it to drain. I encourage you to floss this tubing as shown at the bedside 2 or 3 times a day. It should be removed in 3 to 4 days time. At any point you are having increasing pain, fevers increased swelling or worsening drainage then please return immediately to the ER for a second evaluation. Your prescriptions were sent electronically to the [facility] in [place]. I am prescribing a short course of narcotic pain medication for you. These are potentially dangerous and addictive medications that should be used carefully. These medications may constipate you. Take an kjnh-vzb-dqsfwhc stool softener (docusate) twice daily with plenty of water while taking these medications. If you go 24 hours without a bowel movement, take rigr-itv-flonywr miralax, per package instructions. Do not drink or drive while taking these medications. If you received narcotic or sedating medications while in the emergency department, do not drive for 24 hours. Store this medication in a safe, secure place and out of reach of children. It is a violation of federal law to give or sell this medication to another person or to use in a manner other than prescribed. The ED will not refill narcotic prescriptions, including prescriptions lost or stolen. To dispose of unwanted medications: 1. [facility] at [address] in [place] has a medication drop box. They accept prescription medications (in pill form) Saturday through Saturday 9:00 a.m. to 5:00 p.m. 2. The [facility] Police Department accepts prescription medications (in pill form only) for disposal year round. Call for more information. 3. Contact the [facility] for the next [facility] sponsored prescription drug collection event. , [phone], or [phone]; Note that many narcotic pain relievers also contain Tylenol/acetaminophen. Please ensure that your total dose of acetaminophen from all sources does not exceed 3 g (3000 mg) per day.
[2021-01-26] MEDS ORDERED: PROPOFOL 200 MG/20 ML VIAL IVP ONE (16:50)
--- NOTE | 2021-01-26 16:51 | ED Physician Documentation ---
PD HPI WOUND RECHECK - Stated complaint Stated Complaint: MALE - Chief complaint Chief Complaint: Wound - Additional information Additional information: I assisted for sedation only. PD PAST MEDICAL HISTORY - Past Medical History Cardiovascular: None Respiratory: None Neuro: None Endocrine/Autoimmune: None GI: Other : None HEENT: None Psych: None Musculoskeletal: None Derm: None - Past Surgical History Past Surgical History: No - Present Medications Home Medications: Ambulatory Orders Medication Instructions Recorded Confirmed No Known Home Medications 01/26/21 01/26/21 - Allergies Allergies/Adverse Reactions: Allergies Allergy/AdvReac Type Severity Reaction Status Date / Time ibuprofen Allergy Hives Verified 01/26/21 15:24 Iodinated Contrast Media AdvReac Emesis Verified 01/26/21 15:24 - Social History Does the pt smoke?: No Smoking Status: Never smoker Does the pt drink ETOH?: Yes Does the pt have substance abuse?: No - Immunizations Immunizations are current?: Yes - POLST Patient has POLST: No Results - Vitals Vitals: Vital Signs - 24 hr 01/26/21 15:23 Temperature 36.7 C Heart Rate 67 Respiratory 16 Rate Blood Pressure 131/73 H O2 Saturation 98 Oxygen O2 Source Room air Procedures - Procedural sedation Sedation prep: Informed consent, Time out completed, PE performed, ASA 1 - healthy Sedation Medications: propofol (Divided doses totaling 260 mg) Mallampati classification: I Patient status during sedation: Unresponsive Sedation recovery: Recovered uneventfully Time in sedation (Minutes): 10
[2021-01-26 18:32] VITALS: BP 114/70
== END 2021-01-26 18:39 | disposition home or self-care (01) ==
LOC: ED 15:12
DX: L02.214 Cutaneous abscess of groin (principal); R59.0 Localized enlarged lymph nodes
CPT/HCPCS: 55100; 87070; 87205; 96372; 96374; 99156; 99283; 99285; A9270; J1170; 94770

== ENCOUNTER 2021-01-29 13:00 | Emergency (ER) | payer OTHER ==
[2021-01-29 13:18] VITALS: BP 130/80
--- NOTE | 2021-01-29 15:36 | ED Physician Documentation ---
PD HPI SKIN - Stated complaint Stated Complaint: RE-CHECK - Chief complaint Chief Complaint: Wound - History obtained from History obtained from: Patient - Additional information Additional information: Patient comes emergency department for chief complaint of recheck of scrotal I&D site after I&D 3 days ago. Patient had a drain placed in the ED and he was told to come back to have the wound checked and the drain removed. Patient states that he has not had any further drainage from the area, and the swelling seems to have progressively lessened. He has not noticed any induration or redness spreading away from the area. He has been able to urinate without difficulty. No abdominal pain. No scrotal or testicular swelling. Review of Systems Ten Systems: 10 systems reviewed and negative Constitutional: reports: Reviewed and negative Eyes: reports: Reviewed and negative Ears: reports: Reviewed and negative Nose: reports: Reviewed and negative Throat: reports: Reviewed and negative Cardiac: reports: Reviewed and negative Respiratory: reports: Reviewed and negative GI: reports: Reviewed and negative : reports: Other (Wound recheck) Skin: reports: Reviewed and negative Musculoskeletal: reports: Reviewed and negative Neurologic: reports: Reviewed and negative Psychiatric: reports: Reviewed and negative Endocrine: reports: Reviewed and negative Immunocompromised: reports: Reviewed and negative PD PAST MEDICAL HISTORY - Past Medical History Cardiovascular: None Respiratory: None Neuro: None Endocrine/Autoimmune: None GI: Other : None HEENT: None Psych: None Musculoskeletal: None Derm: None - Past Surgical History Past Surgical History: No - Present Medications Home Medications: Ambulatory Orders Medication Instructions Recorded Confirmed HYDROcod/ACETAM 5/325 [[place] 5/325] 1 tab PO BID #8 tablet 01/26/21 HYDROcod/ACETAM 5/325 [[place] 5/325] 1 tablet PO BID PRN #10 tablet 01/26/21 Sulfamethox/Trimeth 800/160 1 each PO BID #14 tablet 01/26/21 [Bactrim Ds 800/160] - Allergies Allergies/Adverse Reactions: Allergies Allergy/AdvReac Type Severity Reaction Status Date / Time ibuprofen Allergy Hives Verified 01/29/21 13:16 Iodinated Contrast Media AdvReac Emesis Verified 01/29/21 13:16 - Social History Does the pt smoke?: No Smoking Status: Never smoker Does the pt drink ETOH?: Yes Does the pt have substance abuse?: No - Immunizations Immunizations are current?: Yes - POLST Patient has POLST: No PD ED PE NORMAL - Vitals Vital signs reviewed: Yes - General General: Alert and oriented X 3, No acute distress - HEENT HEENT: Atraumatic, PERRL, Moist mucous membranes - Neck Neck: Supple, no meningeal sign - Respiratory Respiratory: No respiratory distress - Male Male : Other (Left scrotal I&D site clean dry and intact. No purulent drainage expressible. Drain in place. No erythema or induration.) - Derm Derm: Normal color, Warm and dry, No rash - Extremities Extremities: No deformity - Neuro Neuro: Alert and oriented X 3 - Psych Psych: Normal mood, Normal affect Results - Vitals Vitals: Oxygen O2 Source Room air PD MEDICAL DECISION MAKING - ED course Complexity details: considered differential, d/w patient ED course: Drain was removed and patient was advised to continue taking his antibiotics. We have discussed the usual indications for return. Departure - Departure Disposition: 01 Home, Self Care Clinical Impression: Encounter for wound re-check Condition: Stable Comments: Your tubing was removed today. You do not appear to have any lingering abscess in your scrotal area. You will most likely have some tenderness and some firmness of the tissue there, but this should subside with time. Please finish your antibiotic course as directed. The wounds will heal on their own. Forms: Activity restrictions Discharge Date/Time: 01/29/21 15:48
== END 2021-01-29 15:48 | disposition home or self-care (01) ==
LOC: ED 13:00
DX: Z48.03 Encounter for change or removal of drains (principal)
CPT/HCPCS: 99281; 99283